=== PATIENT | female | born 1965 | race Caucasian/White ===

== ENCOUNTER 2017-12-01 10:35 | Inpatient (IN) | payer OTHER ==
[~2017-12-01] VITALS: Ht 165.1 cm; Wt 104.1 kg
[2017-12-01 11:46] LABS: BASOPHIL (%) 0.1 % (0-1); EOSINOPHIL (%) 1.1 % (0-5); EOSINOPHIL COUNT 0.1 K/uL (0-0.3); HEMATOCRIT 42.7 % (36.0-46.0); HEMOGLOBIN 14.7 G/DL (11.9-15.5); IMMATURE GRANULOCYTE (%) 0.3 % (0.0-0.7); LYMPHOCYTE (%) 21.4 % (15-42); LYMPHOCYTE COUNT 1.6 K/uL (1.0-2.8); MCH 29.6 PG (29.0-34.0); MCHC 34.4 G/DL (30.0-36.0); MCV 86.1 FL (83-99); MONOCYTE (%) 7.4 % (3-12); MONOCYTE COUNT 0.6 K/uL (0-0.8); NEUTROPHIL (%) 69.7 % (45-76); NEUTROPHIL COUNT 5.2 K/uL (1.8-6.4); PLATELET COUNT 168 K/uL (156-360); RBC DIS.WIDTH-CV 12.3 % (11.8-14.6); RBC DIS.WIDTH-SD 38.7 % (39-53); RED BLOOD COUNT 4.96 M/uL (3.80-5.20); WHITE BLOOD COUNT 7.4 K/uL (4.1-10.2)
[2017-12-01 11:55] LABS: CHLORIDE 102 mEq/L (99-109); POTASSIUM 3.5 mEq/L (3.7-5.4); SODIUM 140 mEq/L (136-147)
[2017-12-01 11:56] LABS: GLUCOSE 350 mg/dL (70-99)
[2017-12-01 12:00] LABS: CREATININE 0.7 mg/dL (0.6-1.3); GFR ESTIMATE (CALCULATED) > 59 mL/min/
[2017-12-01 12:01] LABS: UREA NITROGEN (BUN) 11 mg/dL (9-23)
[2017-12-01 12:07] LABS: TROP-I INTERPRETATION NEGATIVE; TROPONIN-I 0.01 ng/mL (0.0-0.30)
[2017-12-01 13:52] LABS: APPEARANCE CLOUDY ((CLEAR)); BILIRUBIN NEGATIVE; BLOOD SMALL; COLOR YELLOW ((YELLOW)); GLUCOSE (STRIP) >=500; KETONES NEGATIVE; LEUKOCYTES LARGE; NITRITE NEGATIVE; PROTEIN (STRIP) 100; SPECIFIC GRAVITY 1.027 (1.000-1.030); UROBILINOGEN 0.2 MG/DL (0.2-1.0)
[2017-12-01 13:58] LABS: BACTERIA 2+ /HPF; EPITHELIAL CELLS 2+ /HPF; MUCUS TRACE /LPF; RED BLOOD CELLS 15-20 /HPF (0-5); UCUL ADDED? YES; WHITE BLOOD CELLS TNTC /HPF (0-5)
[2017-12-01] MEDS ORDERED: ADVIL200 MG PO (14:01)
[2017-12-01] MEDS ORDERED: REFRESH OPTIVE1 EAC1 BOTH EYES (14:02)
[2017-12-01 17:24] VITALS: BP 174/81
[2017-12-01 19:28] LABS: TROP-I INTERPRETATION NEGATIVE; TROPONIN-I < 0.01 ng/mL (0.0-0.30)
[2017-12-01 20:00] VITALS: BP 146/84
[2017-12-02] VITALS: BP 135/75
[2017-12-02 02:37] LABS: TROP-I INTERPRETATION NEGATIVE; TROPONIN-I 0.02 ng/mL (0.0-0.30)
[2017-12-02 04:03] VITALS: BP 145/86
[2017-12-02 08:15] VITALS: BP 190/111
[2017-12-02 10:44] LABS: ALBUMIN 3.5 G/DL (3.2-4.8); ALKALINE PHOSPHATASE 97 IU/L (3-129); ALT (GPT) 37 IU/L (3-49); AST (GOT) 16 IU/L (2-34); CHLORIDE 102 MEQ/L (99-109); CREATININE 0.8 MG/DL (0.6-1.3); GFR ESTIMATE (CALCULATED) > 59 mL/min/; GLUCOSE 188 mg/dL (70-99); HDL CHOLESTEROL 38 MG/DL (Desirable>=50); LDL CHOLESTEROL 124 mg/dL (Desirable<100); NON-HDL CHOLESTEROL 139 mg/dL (Desirable<160); POTASSIUM 3.4 MEQ/L (3.7-5.4); SODIUM 143 MEQ/L (136-147); TOTAL BILIRUBIN 1.1 MG/DL (0.0-1.0); TOTAL CHOLESTEROL 177 mg/dL (Desirable<200); TOTAL PROTEIN 5.6 G/DL (6.4-8.3); TRIGLYCERIDES 74 MG/DL (Normal: <150); UREA NITROGEN (BUN) 15 mg/dL (9-23)
[2017-12-02 11:51] VITALS: BP 137/80
[2017-12-02 11:59] LABS: THYROTROPIN (TSH) 1.9 MIU/L (0.4-5.5)
[2017-12-02 12:04] LABS: HEMOGLOBIN A1c (GLYCOHEMOGLOB) 10.8 % (Below 5.7)
[2017-12-02 15:04] VITALS: BP 149/85
[2017-12-02 20:21] VITALS: BP 178/95
[2017-12-03 00:35] VITALS: BP 146/80
[2017-12-03 05:08] VITALS: BP 154/86
[2017-12-03 10:15] LABS: BASOPHIL (%) 0.4 % (0-1); EOSINOPHIL (%) 1.9 % (0-5); EOSINOPHIL COUNT 0.2 K/uL (0-0.3); HEMATOCRIT 46.2 % (36.0-46.0); HEMOGLOBIN 15.5 G/DL (11.9-15.5); IMMATURE GRANULOCYTE (%) 0.3 % (0.0-0.7); LYMPHOCYTE (%) 18.1 % (15-42); LYMPHOCYTE COUNT 1.5 K/uL (1.0-2.8); MCH 29.7 PG (29.0-34.0); MCHC 33.5 G/DL (30.0-36.0); MCV 88.5 FL (83-99); MONOCYTE (%) 7.5 % (3-12); MONOCYTE COUNT 0.6 K/uL (0-0.8); NEUTROPHIL (%) 71.8 % (45-76); NEUTROPHIL COUNT 5.8 K/uL (1.8-6.4); PLATELET COUNT 181 K/uL (156-360); RBC DIS.WIDTH-CV 12.7 % (11.8-14.6); RBC DIS.WIDTH-SD 41.2 % (39-53); RED BLOOD COUNT 5.22 M/uL (3.80-5.20)
[2017-12-03 11:00] LABS: ALBUMIN 3.6 G/DL (3.2-4.8); ALKALINE PHOSPHATASE 102 IU/L (3-129); ALT (GPT) 32 IU/L (3-49); AST (GOT) 14 IU/L (2-34); CHLORIDE 99 MEQ/L (99-109); CREATININE 0.6 MG/DL (0.6-1.3); GFR ESTIMATE (CALCULATED) > 59 mL/min/; GLUCOSE 263 mg/dL (70-99); SODIUM 138 MEQ/L (136-147); TOTAL PROTEIN 5.8 G/DL (6.4-8.3); UREA NITROGEN (BUN) 15 mg/dL (9-23)
[2017-12-03 11:24] VITALS: BP 177/90
[2017-12-03 11:51] VITALS: BP 126/75
[2017-12-03 15:00] VITALS: BP 133/75
[2017-12-03 20:48] VITALS: BP 132/77
[2017-12-04 00:34] VITALS: BP 118/70
[2017-12-04 05:00] VITALS: BP 149/87
[2017-12-04 07:33] VITALS: BP 139/76
[2017-12-04 11:36] VITALS: BP 135/80
[2017-12-04] MEDS ORDERED: LIPITOR40 MG PO ×2 (15:00→16:14)
[2017-12-04] MEDS ORDERED: OMEPRAZOLE40 M1 PO (15:01)
[2017-12-04] MEDS ORDERED: GLUCOMETER MC (15:02)
[2017-12-04] MEDS ORDERED: LOTRISONE15 GM TP (15:02)
[2017-12-04] MEDS ORDERED: LOTENSIN40 MG PO (15:05)
[2017-12-04] MEDS ORDERED: ACTOS45 MG PO (15:05)
[2017-12-04] MEDS ORDERED: LASIX40 MG PO (15:05)
[2017-12-04] MEDS ORDERED: ATENOLOL100 MG PO (15:05)
[2017-12-04] MEDS ORDERED: JANUVIA100 MG PO (15:05)
[2017-12-04] MEDS ORDERED: glucometer strips (15:05)
[2017-12-04] MEDS ORDERED: METFORMIN HCL1000 MG PO (15:05)
[2017-12-04 16:34] VITALS: BP 141/79
== END 2017-12-04 17:42 | disposition home or self-care (01) | DRG 205 ==
LOC: EME 10:35 → 4EAST 14:05 → EDOF 14:05 → ENRESERV 14:23 → EDOF 14:28 → ENRESERV 15:19 → 4EAST 17:07
PROVIDERS: Emergency Medicine; Family Medicine
DX: R09.02 Hypoxemia (principal); I11.0 Hypertensive heart disease with heart failure; I50.9 Heart failure, unspecified; F17.200 Nicotine dependence, unspecified, uncomplicated; J18.9 Pneumonia, unspecified organism; E11.65 Type 2 diabetes mellitus with hyperglycemia; E66.3 Overweight; N39.0 Urinary tract infection, site not specified; R51 Headache; J32.9 Chronic sinusitis, unspecified; I25.10 Atherosclerotic heart disease of native coronary artery without angina pectoris; B37.2 Candidiasis of skin and nail; E78.5 Hyperlipidemia, unspecified; K21.0 Gastro-esophageal reflux disease with esophagitis; Z93.3 Colostomy status; Z86.32 Personal history of gestational diabetes; Z68.37 Body mass index [BMI] 37.0-37.9, adult
CPT/HCPCS: 70450; 71046; 71250; 80048; 80053; 80061; 81003; 82948; 83036; 83605; 83880; 84443; 84484; 85025; 87077; 87086; 87186; 90686; 93005; 93306; 99281; 99285; J0456; J0696; J1815; J1940

== ENCOUNTER 2018-05-01 12:50 | Emergency (ER) | payer OTHER ==
[~2018-05-01] VITALS: Ht 165.1 cm; Wt 109.3 kg
[~2018-05-01 12:50] MED LIST: ACTOS45 MG PO; ADVIL200 MG PO; ATENOLOL100 MG PO; GLUCOMETER MC; JANUVIA100 MG PO; LASIX40 MG PO; LIPITOR40 MG PO; LOTENSIN40 MG PO; LOTRISONE15 GM TP; METFORMIN HCL1000 MG PO; OMEPRAZOLE40 M1 PO; REFRESH OPTIVE1 EAC1 BOTH EYES; glucometer strips
[2018-05-01 13:46] LABS: HEMATOCRIT 30.4 % (36.0-46.0); HEMOGLOBIN 10.4 G/DL (11.9-15.5); MCH 32.2 PG (29.0-34.0); MCHC 34.2 G/DL (30.0-36.0); MCV 94.1 FL (83-99); NRBC (%) 0.2 /100 WBC (0-0); PLATELET COUNT 180 K/uL (156-360); RBC DIS.WIDTH-CV 13.3 % (11.8-14.6); RBC DIS.WIDTH-SD 45.7 % (39-53); RED BLOOD COUNT 3.23 M/uL (3.80-5.20); WHITE BLOOD COUNT 9.4 K/uL (4.1-10.2)
[2018-05-01 13:54] LABS: CHLORIDE 107 mEq/L (99-109); POTASSIUM 4.6 mEq/L (3.7-5.4); SODIUM 143 mEq/L (136-147)
[2018-05-01 13:56] LABS: GLUCOSE 100 mg/dL (70-99)
[2018-05-01 14:00] LABS: CREATININE 0.9 mg/dL (0.6-1.3); GFR ESTIMATE (CALCULATED) > 59 mL/min/
[2018-05-01 14:01] LABS: UREA NITROGEN (BUN) 33 mg/dL (9-23)
[2018-05-01 14:07] LABS: TROP-I INTERPRETATION NEGATIVE; TROPONIN-I < 0.01 ng/mL (0.0-0.30)
[2018-05-01 17:21] LABS: TROP-I INTERPRETATION NEGATIVE; TROPONIN-I < 0.01 ng/mL (0.0-0.30)
[2018-05-01 18:03] VITALS: BP 119/64
== END 2018-05-01 18:14 | disposition home or self-care (01) ==
LOC: EME 12:50
PROVIDERS: Emergency Medicine
DX: R07.89 Other chest pain (principal); F41.9 Anxiety disorder, unspecified; R00.2 Palpitations; R06.02 Shortness of breath; Z73.3 Stress, not elsewhere classified; I11.0 Hypertensive heart disease with heart failure; I50.9 Heart failure, unspecified; E11.9 Type 2 diabetes mellitus without complications; Z79.84 Long term (current) use of oral hypoglycemic drugs; Z87.891 Personal history of nicotine dependence
CPT/HCPCS: 71046; 80048; 84484; 85027; 85379; 93005; 99281; 99285